=== PATIENT | female | born 2000 | race Two or more races ===

== ENCOUNTER → 2022-04-15 | Emergency (ER) | payer OTHER ==
[~2022-04-15] VITALS: Ht 157.5 cm; Wt 86.2 kg
[~2022-04-15] MED LIST: DOXY-338 PO; NAPR500T31 PO
[2022-04-15 15:04] VITALS: BP 131/79
[2022-04-15 17:03] LABS: Basophils # (auto) 0 10 ^3/uL (0-0.2); Basophils % (auto) 0.3 % (0.0-2.0); Eosinophils # (auto) 0 10 ^3/uL (0-0.8); Eosinophils % (auto) 0.3 % (0.0-7.0); Hemoglobin 12.6 g/dL (12.2-16.2); Lymphocytes # (auto) 2.5 10 ^3/uL (0.4-5.4); Lymphocytes % (auto) 29.9 % (10.0-50.0); Mean Corpuscular Hemoglobin 28.9 pg (28.0-32.0); Mean Corpuscular Hgb Conc. 33.9 g/dL (32.0-36.0); Mean Corpuscular Volume 85.1 fL (80.0-100.0); Monocytes # (auto) 0.5 10 ^3/uL (0-1.3); Monocytes % (auto) 5.4 % (0.0-12.0); Neutrophils # (auto) 5.4 10 ^3/uL (1.6-8.6); Neutrophils % (auto) 64.1 % (37.0-80.0); Red Blood Cells 4.35 10^6/uL (4.0-5.20); Red Cell Distribution Width 14.5 % (11.8-14.3); White Blood Cell 8.4 10^3/uL (4.4-10.8)
[2022-04-15 17:10] LABS: Urine WBC None Seen /hpf (0 - 5)
[2022-04-15 17:19] LABS: Calcium 8.6 mg/dL (8.5-10.1); Potassium 4.1 mmol/L (3.5-5.1)
[2022-04-15 17:23] LABS: BUN/Creatinine Ratio 13.6
[2022-04-15 17:57] LABS: Urine Bacteria NONE SEEN /hpf (None Seen); Urine Blood 3+ /uL (Negative); Urine Mucus FEW (None Seen); Urine Specific Gravity 1.026 (1.001-1.035)
== END | disposition home or self-care (01) ==
LOC: ER 15:02
DX: N93.9 Abnormal uterine and vaginal bleeding, unspecified (principal)
CPT/HCPCS: 36415; 80048; 81001; 84702; 85025

== ENCOUNTER 2025-06-25 11:25 | Emergency (ER) | payer MEDICAID, OTHER ==
[~2025-06-25] VITALS: Ht 157.5 cm; Wt 94.0 kg
[~2025-06-25 11:25] MED LIST changes: -DOXY-338 PO; +DOXY1CAP58 PO; +NAPR-746 PO; -NAPR500T31 PO
--- NOTE | 2025-06-25 12:15 | ED.PDOC ---
PROFESSOR OF SOCIOLOGY HPI Comments 24y F who presents to the ED for chief complaint of vaginal bleeding. Pt states she has been having vaginal bleeding for the past 13 days. Pt states she has been having bright red bleeding with associated passage of blood clots. Pt states she has also been feeling weak with associated generalized body aches and pains. Pt states today she started to have associated chest wall pains, back pains, and abdominal pain and came to the ED for further evaluation. Pt in the ED, states she does not know she is on her menstrual cycle. Pt otherwise denies nausea,vomiting, diarrhea, fever, cough, chills, dysuria, hematuria or associated symptoms. Pt otherwise denies any other symptoms at this time. Chief Complaint: Vaginal Bleed Time Seen by MD: 12:00 Reviewed Notes: Medications, Allergies Allergies: Coded Allergies: NO KNOWN ALLERGIES (Unverified , 06/25/25) Home Meds Active Scripts Naproxen (Naproxen) 500 Mg Tab, 500 MG PO BID, #30 TAB Prov:MARIELY TIAN 04/15/22 Doxycycline (Monohydrate) (Doxycycline) 100 Mg Cap, 100 MG PO BID, #20 CAP Prov:MARIELY TIAN 04/15/22 Information Source: Patient Mode of Arrival: Ambulatory Past Medical History PAST MEDICAL HISTORY: Denies Surgical History: Denies all surgeries INTERNET SALES REPRESENTATIVE History: No Pertinent INTERNET SALES REPRESENTATIVE History Family History Family History: Reviewed,noncontributory to illness Social History Smoker: Non-Smoker Alcohol: Denies ETOH Use Drugs: Denies Drug Use Lives In: Home Constitutional: reports: malaise, weakness; denies: chills, diaphoresis, fatigue, fever, sweats, others EENTM: denies: blurred vision, double vision, ear bleeding, ear discharge, ear drainage, ear pain, ear ringing, eye pain, eye redness, hearing loss, mouth pain, mouth swelling, nasal discharge, nose bleeding, nose congestion, nose pain, photophobia, tearing, throat pain, throat swelling, voice changes, others Respiratory: denies: cough, hemoptysis, orthopnea, SOB at rest, shortness of breath, SOB with excertion, stridor, wheezing, others Cardiovascular: denies: chest pain, dizzy spells, diaphoresis, Dyspnea on exertion, edema, irregular heart beat, left arm pain, lightheadedness, palpitations, PND, syncope, others Gastrointestinal: reports: abdominal pain; denies: abdomen distended, blood streaked bowels, constipated, diarrhea, dysphagia, difficulty swallowing, hematemesis, melena, nausea, poor appetite, poor fluid intake, rectal bleeding, rectal pain, vomiting, others Genitourinary: reports: abnormal vagina bleeding; denies: burning, dyspareunia, dysuria, flank pain, frequency, hematuria, incontinence, pain, , vagina discharge, urgency, others Neurological: denies: dizziness, fainting, headache, left sided numbness, left sided weakness, numbness, paresthesia, pre-existing deficit, right sided numbness, right sided weakness, seizure, speech problems, tingling, tremors, weakness, others Musculoskeletal: reports: back pain; denies: gout, joint pain, joint swelling, muscle pain, muscle stiffness, neck pain, others Integumetry: denies: bruises, change in color, change in hair/nails, dryness, laceration, lesions, lumps, rash, wounds, others Allergic/Immunocompromised: denies: Difficulty Healing, Frequent Infections, Hives, Itching, others Hematologic/Lymphatic: denies: anemia, blood clots, easy bleeding, easy bruising, swollen glands, others Endocrine: denies: excessive hunger, excessive sweating, excessive thirst, excessive urination, flushing, intolerance to cold, intolerance to heat, unexplained weight gain, unexplained weight loss, others Psychiatric: denies: anxiety, bipolar disorder, depression, hopeless, panic disorder, schizophrenia, sleepless, suicidal, others All Other Systems: Reviewed and Negative Physical Exam General Appearance: No Apparent Distress, Obese HEENT: Normal ENT Inspection, PERRL/EOMI Neck: Full Range of Motion, Non-Tender, Normal, Normal Inspection Respiratory: Chest Non-Tender, Lungs Clear, No Accessory Muscle Use, No Respiratory Distress, Normal Breath Sounds Cardiovascular: No Edema, No JVD, No Murmur, No Gallop, Normal Peripheral Pulses, Regular Rate/Rhythm Breast Exam: Deferred Gastrointestinal: No Organomegaly, No Pulsatile Mass, Normal Bowel Sounds, Soft, Suprapubic, Tenderness Genitalia: Deferred Pelvic: Vaginal Bleeding Rectal: Deferred Extremities: No calf tenderness, Normal capillary refill, Normal inspection, Normal range of motion, Non-tender, No pedal edema 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 Was a procedure done?: No Differential Diagnosis (INTERNET SALES REPRESENTATIVE) Vaginal Bleeding: - Threatened, Cervicitis, Menometrorrhagia, Menstrual Bleeding, UTI, Vaginitis Mass / Lesion: N/A Vaginal Discharge: , UTI X-Ray, Labs, Meds, VS Vital Signs Date Time Temp Pulse Resp B/P (MAP) Pulse Ox O2 Delivery O2 Flow Rate FiO2 06/25/25 16:04 97.6 67 17 119/62 (81) 99 97.6 06/25/25 16:04 67 17 99 Room Air 06/25/25 11:26 97.5 104 15 115/75 98 97.5 Lab Test 06/25/25 12:34 06/25/25 12:30 Range/Units Urine Color Yellow Yellow Urine Clarity Clear Clear Urine pH 6.0 5.0-9.0 Urine Specific [place] 1.031 1.001-1.035 Urine Protein Negative Negative Urine Ketones Negative Negative Urine Blood 2+ H Negative /uL Urine Nitrite Negative Negative Urine Bilirubin Negative Negative Urine Urobilinogen Normal Negative mg/dL Urine Leukocyte Esterase Negative Negative /uL Urine RBC 2 0 - 4 /hpf Urine Microscopic WBC 1 0-5 /HPF Urine Squamous Epithelial Cells Few <5 /hpf Urine Bacteria None seen None Seen /hpf Urine Mucus Few None Seen Urine Glucose Normal Normal mg/dL White Blood Count 10.5 4.4-10.8 10^3/uL Red Blood Count 4.54 4.0-5.20 10^6/uL Hemoglobin 12.7 12.2-16.2 g/dL Hematocrit 37.6 36.0-46.0 % Mean Corpuscular Volume 82.8 80.0-100.0 fL Mean Corpuscular Hemoglobin 28.1 28.0-32.0 pg Mean Corpuscular Hemoglobin Concent 33.9 32.0-36.0 g/dL Red Cell Distribution Width 13.9 11.8-14.3 % Platelet Count 256 140-450 10^3/uL Mean Platelet Volume 7.9 6.9-10.8 fL Neutrophils (%) (Auto) 69.3 37.0-80.0 % Lymphocytes (%) (Auto) 25.6 10.0-50.0 % Monocytes (%) (Auto) 4.4 0.0-12.0 % Eosinophils (%) (Auto) 0.3 0.0-7.0 % Basophils (%) (Auto) 0.4 0.0-2.0 % Neutrophils # (Auto) 7.3 1.6-8.6 10 ^3/uL Lymphocytes # (Auto) 2.7 0.4-5.4 10 ^3/uL Monocytes # (Auto) 0.5 0-1.3 10 ^3/uL Eosinophils # (Auto) 0 0-0.8 10 ^3/uL Basophils # (Auto) 0 0-0.2 10 ^3/uL Nucleated Red Blood Cells 0.0 % Sodium Level 139 136-145 mmol/L Potassium Level 3.8 3.5-5.1 mmol/L Chloride Level 106 98-107 mmol/L Carbon Dioxide Level 24 20-31 mmol/L Anion Gap 9 5-15 Blood Urea Nitrogen 10 9-23 mg/dL Creatinine 0.71 0.550-1.02 mg/dL Glomerular Filtration Rate Calc 120 >90 mL/min BUN/Creatinine Ratio 14.1 10.0-20.0 Serum Glucose 121 H 74-106 mg/dL Calcium Level 9.1 8.7-10.4 mg/dL Beta HCG, Quantitative 0.4 L 1.5-4.2 mIU/mL [place] [address] Ph: [phone] DIAGNOSTIC IMAGING Diagnostic Imaging Report : [id number] Signed PATIENT: EDA FOXACCT: [id number] UNIT: [id number] : 2000 LOC: ER ROOM / BED: / AGE / SEX: 24 / F ADM STATUS: REG ER SERVICE 0000 ORDERING PHYSICIAN: SIOBHAN FUENTES MD PROCEDURE(s): PELTR - TRANSVAGINAL US NON OB REASON: VAG BLEED X 12 DAYS ORDER NUMBER(s): [id number], ACCESSION NUMBER(s): [id number] INDICATION: Vaginal bleeding TECHNIQUE: Multiple real-time grayscale transabdominal and transvaginal sonographic images along with color and duplex Doppler of the uterus and ovaries were obtained. COMPARISON: None FINDINGS: The uterus measures 7.7 x 5.7 x 4.1 cm. The endometrial stripe measures 0.8 cm. Right ovary measures 3.0 x 2.2 x 2.6 cm with normal Doppler color flow Left ovary measures 3.7 x 2.8 x 2.6 cm with normal Doppler color flow Right ovarian cyst measures 1.2 cm. Echogenic structure in the left ovary measures 1.8 cm. IMPRESSION: Echogenic structure in the left ovary measures 1.8 cm. This may represent a dermoid cyst. Nonspecific small volume fluid in the endometrial canal. ATED BY: DIMA PRADHAN MD DICTATED DATE/TIME: 06/25/251416 SIGNED BY: DIMA PRADHAN MD SIGNED DATE/TIME: 06/25/251416 CC: [place] [address] Ph: [phone] DIAGNOSTIC IMAGING Diagnostic Imaging Report : [id number] Signed PATIENT: EDA FOXACCT: [id number] UNIT: [id number] : 2000 LOC: ER ROOM / BED: / AGE / SEX: 24 / F ADM STATUS: REG ER SERVICE [id number] ORDERING PHYSICIAN: SIOBHAN FUENTES MD PROCEDURE(s): PELUS - PELVIC REASON: Vaginal bleeding ORDER NUMBER(s): [id number], ACCESSION NUMBER(s): [id number] INDICATION: Vaginal bleeding TECHNIQUE: Multiple real-time grayscale transabdominal and transvaginal sonographic images along with color and duplex Doppler of the uterus and ovaries were obtained. COMPARISON: None FINDINGS: The uterus measures 7.7 x 5.7 x 4.1 cm. The endometrial stripe measures 0.8 cm. Right ovary measures 3.0 x 2.2 x 2.6 cm with normal Doppler color flow Left ovary measures 3.7 x 2.8 x 2.6 cm with normal Doppler color flow Right ovarian cyst measures 1.2 cm. Echogenic structure in the left ovary measures 1.8 cm. IMPRESSION: Echogenic structure in the left ovary measures 1.8 cm. This may represent a dermoid cyst. Nonspecific small volume fluid in the endometrial canal. ATED BY: DIMA PRADHAN MD DICTATED DATE/TIME: 06/25/251416 SIGNED BY: DIMA PRADHAN MD SIGNED DATE/TIME: 06/25/251416 CC: X-Ray, Labs, Meds, VS Comment Course in the emergency department eventful patient came in complaining of vaginal bleeding for 13 days with abdominal cramps and blood clots Blood pressure 115/75 CBC is normal Urine is negative BNP negative Beta HCG 0.4 Ultrasound shows a dermoid cyst at for the left ovary with some fluid in the endometrial canal Patient will go home to follow up with her it business systems analyst Time of 1ST Reevaluation: 12:32 Reevaluation 1ST: Unchanged Time of 2ND Reevaluation: 15:08 Reevaluation 2ND: Improved Consultation: PCP, rn invasive Patient Education/Counseling: Diagnosis, Treatment, Prognosis, Need For Follow Up Family Education/Counseling: Diagnosis, Treatment, Prognosis, Need For Follow Up, No Family Present Departure 1 Departure Time of Disposition: 15:09 Impression: Primary Impression: Menometrorrhagia Disposition: 01 HOME / SELF CARE / HOMELESS Condition: Fair Additional Instructions: Need to push fluids and you need to follow up with your it business systems analyst to help you with a vaginal bleeding Discharged With: Self Critical Care Note Critical Care Time?: No Stability Stability form required: No Heart Score Heart Score: Heart Score Response (Comments) Value History N/A 0 EKG N/A 0 Age <45 0 Risk Factors No known risk factors 0 Troponin N/A 0 Total 0 I personally scribed for SIOBHAN FUENTES MD ([email or web address]) on 06/25/25 at 12:15. Electronically submitted by Jeanna Lynch ([facility] I personally scribed for SIOBHAN FUENTES MD ([email or web address]) on 06/25/25 at 14:23. Electronically submitted by Jeanna Lynch ([facility] I personally scribed for SIOBHAN FUENTES MD ([email or web address]) on 06/25/25 at 14:43. Electronically submitted by Jeanna Lynch ([email or web address]). SIOBHAN FUENTES MD Jun 25, 2025 12:15
[2025-06-25 12:42] LABS: Hematocrit 37.6 % (36.0-46.0); Hemoglobin 12.7 g/dL (12.2-16.2); Mean Corpuscular Hemoglobin 28.1 pg (28.0-32.0); Mean Corpuscular Volume 82.8 fL (80.0-100.0); Nucleated Red Blood Cells % 0.0 %
[2025-06-25 12:54] LABS: Chloride 106 mmol/L (98-107); Potassium 3.8 mmol/L (3.5-5.1); Sodium 139 mmol/L (136-145)
[2025-06-25 12:55] LABS: Anion Gap 9 (5-15); Carbon Dioxide 24 mmol/L (20-31)
[2025-06-25 12:56] LABS: Calcium 9.1 mg/dL (8.7-10.4)
[2025-06-25 12:58] LABS: Urine Protein, UAD Negative (Negative)
[2025-06-25 13:00] LABS: BUN/Creatinine Ratio 14.1 (10.0-20.0); Blood Urea Nitrogen 10 mg/dL (9-23); Glucose 121 mg/dL (74-106)
--- NOTE | 2025-06-25 14:19 | DVH ---
INDICATION: Vaginal bleeding TECHNIQUE: Multiple real-time grayscale transabdominal and transvaginal sonographic images along with color and duplex Doppler of the uterus and ovaries were obtained. COMPARISON: None FINDINGS: The uterus measures 7.7 x 5.7 x 4.1 cm. The endometrial stripe measures 0.8 cm. Right ovary measures 3.0 x 2.2 x 2.6 cm with normal Doppler color flow Left ovary measures 3.7 x 2.8 x 2.6 cm with normal Doppler color flow Right ovarian cyst measures 1.2 cm. Echogenic structure in the left ovary measures 1.8 cm. IMPRESSION: Echogenic structure in the left ovary measures 1.8 cm. This may represent a dermoid cyst. Nonspecific small volume fluid in the endometrial canal.
[2025-06-25 16:04] VITALS: BP 119/62; PULSE 67; RESP 17; TEMP 97.6; O2SAT 99
== END 2025-06-25 15:45 | disposition home or self-care (01) ==
LOC: ER 11:25
DX: N92.1 Excessive and frequent menstruation with irregular cycle (principal); Z79.899 Other long term (current) drug therapy
CPT/HCPCS: 36415; 76830; 76856; 80048; 81001; 84702; 85025

== ENCOUNTER 2025-09-24 14:59 | Emergency (ER) | payer MEDICAID ==
[~2025-09-24] VITALS: Ht 157.5 cm; Wt 98.0 kg
[2025-09-24 15:00] VITALS: BP 155/79; PULSE 112; RESP 18; TEMP 97.4; O2SAT 96
== END 2025-09-24 16:59 | disposition left against medical advice (07) ==
LOC: ER 14:59
DX: R51.9 Headache, unspecified (principal); Z53.21 Procedure and treatment not carried out due to patient leaving prior to being seen by health care provider